=== PATIENT | female | born 2000 | race Caucasian/White ===

== ENCOUNTER 2024-03-23 10:26 | Emergency (ER) | payer MEDICAID ==
[~2024-03-23] VITALS: Ht 160 cm; Wt 64.9 kg
[2024-03-23 10:39] VITALS: BP 107/64; TEMP 99.5
[2024-03-23 11:17] VITALS: O2SAT 98
== END 2024-03-23 11:18 | disposition home or self-care (01) ==
LOC: ER 10:30
DX: B34.9 Viral infection, unspecified (principal); R10.2 Pelvic and perineal pain; R53.81 Other malaise
CPT/HCPCS: 84703-TC